=== PATIENT | female | born 1940 | race Caucasian/White ===

== ENCOUNTER 2016-03-14 20:32 | Emergency (ER) | payer MEDICARE, MEDICAID ==
[2016-03-14 20:32] VITALS: BMI 25.7
[2016-03-14 20:42] VITALS: TEMP 98.3
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
[2016-03-14] MEDS: HYDROmorphone 1 MG INJECTION IM ONE (21:06)
--- NOTE | 2016-03-14 22:09 | DIRPT ---
CLINICAL DATA: 75-year-old female with worsening back pain EXAM: CT THORACIC SPINE WITHOUT CONTRAST TECHNIQUE: Multidetector CT imaging of the thoracic spine was performed without intravenous contrast administration. Multiplanar CT image reconstructions were also generated. COMPARISON: Radiograph dated 02/19/[address] dated 09/22/2014 FINDINGS: There is a T12 compression fracture which is new compared the CT dated 09/22/2014 appears progressed since radiograph dated 02/19/2016, likely acute or subacute. There is approximately 50% loss of vertebral body height with anterior wedging. There is a 5 mm retropulsion of the superior posterior corner with moderate focal narrowing of the central canal. The bones are osteopenic. There is mild chronic appearing compression deformity of the inferior endplate of the T5 vertebra. No other acute fracture identified. There is mild perivertebral hematoma adjacent to the L2 vertebra. Mild centrilobular emphysema. Mild atherosclerotic disease of the visualized aorta. IMPRESSION: Compression fracture of the superior endplate of the T12 vertebra with interval progression compared the prior radiograph likely acute on chronic. Approximately 50% loss of vertebral body height with anterior wedging. Retropulsed fracture fragment from the posterior superior corner of the T12 with moderate focal narrowing of the central canal. MRI may provide better evaluation of the cord if clinically indicated. Electronically Signed By: Devan Hackett M.D. On: 03/14/2016 22:07
[2016-03-14] MEDS: OXYCODONE HCL 5 MG TABLET PO STA (23:00)
[2016-03-14 23:34] VITALS: BP 136/70; PULSE 78
== END 2016-03-14 23:33 | disposition home or self-care (01) ==
LOC: ED 20:32
DX: S22.000G Wedge compression fracture of unspecified thoracic vertebra, subsequent encounter for fracture with delayed healing (principal)
CPT/HCPCS: 72128; 96372; 99283; A9270; J1170; J3490

== ENCOUNTER 2016-03-20 11:05 | Inpatient (IN) | payer MEDICARE, MEDICAID ==
[~2016-03-20 11:05] MED LIST: DEXAMETHASONE 4 MG/ML VIAL IV ONE; GLYCOPYRROLATE 1 MG VIAL IM ONE; HYDROmorphone 2 MG/ML VIAL IM ONE; MIDAZOLAM 2 MG/2 ML VIAL IV ONE; NEOSTIGMINE 1 MG/1 ML (1:1000) INJ 10 ML MDV IM ONE; ONDANSETRON HCL 4 MG/2 ML VIAL IV ONE; PHENYLEPHRINE 10 MG/ML VIAL IC ONE; PROPOFOL 200 MG/20 ML VIAL IV ONE; SUCCINYLCHOLINE 20 MG/1 ML INJ 10 ML MDV IV ONE; VECURONIUM 10 MG VIAL IV ONE
[2016-03-20] MEDS ORDERED: REMIFENTANIL HCL 2,000 MCG VIAL IV ONE (13:04)
[2016-03-20] MEDS ORDERED: CEFAZOLIN 1 GM VIAL ONE ×2 (13:08→14:46)
--- NOTE | 2016-03-20 13:22 | HIM.ANES ---
Anesthesia Evaluation & Plan Diagnoses: WEDGE COMPRESSION FRACTURE OF T11-T12 VERTEBRA, INIT (03/20/16) STABLE BURST FRACTURE OF T11-T12 VERTEBRA, INIT FOR CLOS FX (03/20/16) Consented Procedure: POSTERIOR FUSION THORACIC 11 TO LUMBAR 1, THORACIC 12 DECOMPRESSION AND OTHER PROCEDURES INDICATED - Focused Review of Systems Cardiac History: Yes: Hx Hypertension, Hx Cardiac Disorders, Hx Abdominal Aortic Aneurysm (01/03/2016 4.5cm AAA, to be reevaluated in june), Hx Abnormal Cholesterol/Hyperlipidemia HEENT: Yes: Cataracts (small on left, right removed), Cataract Removal (RIGHT), Hx Vision Problem (glasses), Other HEENT Problems Hx Other HEENT Problems: chronic rhinnitis Respiratory: Yes: Hx Asthma (PER PFT'S 09/2014), Hx Emphysema, Hx Chronic Obstructive Pulmonary Disease (COPD), Hx Snoring Gastrointestinal: Yes: Hx Gastroesophageal Reflux Disease, Hx Gastrointestinal Disorders, Hx Colonoscopy, Hx Endoscopy, Hx Esophageal Dilatation Neurological/Musculoskeletal: No: Hx Neurological Disorders Psychological: Yes Hx Anxiety, No Hx Depression, Yes Hx Mental/Emotional Disorders Endocrine: Yes: Hx Hypothyroidism Blood/Autoimmune: No: Hx AIDS, Hx Hepatitis (type) Smoking Status: Former smoker Past Social History: Denies: Amphetamine Use, Substance Use Disorder Hx Echocardiogram (date): Yes (08/2014 EF 60-65%) Hx Chest Xray (date): Yes (01/2016 CLEAR) Surgical History: Yes: Appendectomy Other Surgical History: C/S X 2 - Focused Physical Exam NPO since: 03/19/16 2200 Mallampati: Class II Thyromental Distance: Greater than 3 Neck: Full Range of Motion Dental: Removable Dental Work Cardiovascular/Chest: Normal (RRR no mumurs or rubs.) Respiratory: Lungs clear. negative: Rhonchi, Wheezing Any problems with anesthesia, including nausea and vomiting?: No Any relatives with a history of Malignant Hyperthermia?: No Does patient have a history of Malignant Hyperthermia?: No Beta Ines given (if appropriate): N/A Does the patient have a history of Motion Sickness-: No Other: Problem List Problem Status Onset Abnormal CT scan, chest Acute Atypical pneumonia Acute Pneumonia Acute Thoracic compression fracture Acute Chronic cough Chronic COPD (chronic obstructive pulmonary disease) Suspected Allergies Allergy/AdvReac Type Severity Reaction Status Date / Time gemfibrozil Allergy Mild Rash-Genera Verified 03/17/16 16:18 lized latex Allergy Mild Rash-Genera Verified 03/17/16 16:18 lized penicillin Allergy Mild Rash-Genera Verified 03/17/16 16:18 lized Sulfa (Sulfonamide Allergy Mild Rash-Genera Verified 03/17/16 16:18 Antibiotics) lized tramadol Allergy Itching Verified 03/20/16 12:07 Home Medications Medication Instructions Recorded Last Taken Type Amitriptyline HCl [Elavil] 50 mg PO HS 09/22/14 03/19/16 History Folic Acid 1 mg PO DAILY 09/22/14 03/19/16 History Hydrochlorothiazide 25 mg PO DAILY 09/22/14 03/20/16 09:00 History Methotrexate Sodium [Methotrexate] 10 mg PO .SUNDAY AND Sunday09/22/14 History Olopatadine HCl [Patanol] 1 drop OU BID 09/22/14 03/14/16 History Potassium Chloride [Klor-Con M10] 10 meq PO DAILY 09/22/14 03/19/16 History Lactulose 15 - 30 ml PO DAILY PRN 02/24/16 03/19/16 History Prednisone [Deltasone, Orasone] 10 mg PO DAILY 02/24/16 03/19/16 History Meclizine HCl [Antivert] 25 mg PO TID PRN 03/14/16 03/14/16 History Solifenacin Succinate [Vesicare] 5 mg PO DAILY 03/14/16 03/18/16 History Acetaminophen Ex Str Tablet 500 mg PO QID PRN 03/17/16 03/19/16 History [TYLENOL EXTRA STRENGTH Tablet] Diphenhydramine HCl [Benadryl 25 mg PO DAILY PRN 03/17/16 3 Days Ago History Allergy] Fluticasone Propionate [Flonase] 2 spray MAVERICK DAILY PRN 03/17/16 Unknown History Hydrocodone/Acetaminophen 1 each PO TID PRN 03/17/16 Unknown History [Hydrocodon-Acetaminophen 5-325] Levothyroxine Sodium 2 tab PO DAILY 03/17/16 03/19/16 History Loratadine 10 mg PO DAILY PRN 03/17/16 Unknown History Ranitidine HCl 300 mg PO DAILY 03/17/16 Unknown History Diazepam [Valium] 5 mg PO BID 03/20/16 03/19/16 History PEG-Electrolytes (Miralax) 17 gm PO DAILY PRN 03/20/16 03/19/16 History [Miralax] Height and Weight Patient's height 5 ft 4 in Patient's weight 68.039 kg BMI 25.7 Vital Signs Temperature 97.2 F L 03/20/16 12:07 Pulse Rate 79 03/20/16 12:07 Respiratory Rate 18 03/20/16 12:07 Blood Pressure 123/63 03/20/16 12:07 Pulse Oxygen Saturation METS - Level of Activity: Eating, Dressing, walking around house, dishwashing - Anesthetic Plan Anesthesia Type: General ASA Class: 3 -: I have examined this patient and reviewed the medical record. The patient has been assessed prior to anesthesia. Risks and benefits of anesthesia and anesthetic technique options have been discussed and all questions answered. The patient accepts the risk and desires me to proceed with the planned anesthetic.
[2016-03-20] MEDS ORDERED: ONDANSETRON HCL 4 MG ODT TAB PO PRN (13:23)
[2016-03-20] MEDS ORDERED: MEPERIDINE 25 MG/ML TUBEX IV PRN (13:23)
[2016-03-20] MEDS ORDERED: LABETALOL 20 MG/4 ML SYRINGE IV PRN (13:23)
[2016-03-20] MEDS ORDERED: ONDANSETRON HCL 4 MG/2 ML VIAL IV PRN (13:23)
[2016-03-20] MEDS ORDERED: hydrALAZINE 20 MG/ML VIAL IV PRN (13:23)
[2016-03-20] MEDS ORDERED: FENTANYL 100 MCG/2 ML VIAL IV PRN ×2 (13:23)
[2016-03-20] MEDS ORDERED: TRIAMCINOLONE 40 MG/ML VIAL ONE (13:37)
[2016-03-20] MEDS ORDERED: HYDROmorphone 1 MG INJECTION IV ONE (13:52)
[2016-03-20] MEDS ORDERED: HYDROmorphone 1 MG INJECTION ONE (13:57)
[2016-03-20] MEDS: BUPIVACAINE 0.5% 30 ML VIAL ONE ×2 (14:14→15:57)
[2016-03-20] MEDS: LIDOCAINE 1% 30 ML VIAL (PRESERVATIVE FREE) ONE ×2 (14:15→15:57)
[2016-03-20] MEDS: VANCOMYCIN 1,000 MG VIAL INSTILL ONE ×3 (15:06→17:49)
[2016-03-20] MEDS ORDERED: MECLIZINE 25 MG TAB PO PRN (16:12)
[2016-03-20] MEDS ORDERED: Loratadine 10 MG TAB PO PRN (16:12)
[2016-03-20] MEDS ORDERED: [UNRECOGNIZED DRUG - REMARK] PO PRN (16:12)
[2016-03-20] MEDS ORDERED: MAGNESIUM HYDROXIDE 30 ML BOTTLE PO PRN (16:14)
[2016-03-20] MEDS ORDERED: HYDROmorphone 1 MG INJECTION IV PRN (16:14)
[2016-03-20] MEDS ORDERED: DIPHENHYDRAMINE 50 MG/ML VIAL IV PRN (16:14)
[2016-03-20] MEDS ORDERED: SODIUM CHLORIDE 0.9% 3 ML FLUSH FLUSH PRN (16:14)
[2016-03-20] MEDS ORDERED: OXYCODONE (OxyCONTIN) 10 MG TAB PO PRN (16:14)
[2016-03-20] MEDS ORDERED: DIPHENHYDRAMINE 25 MG CAP PO PRN (16:14)
[2016-03-20] MEDS ORDERED: Aluminum;Magnesium;Simethicone 30 ML UDC PO PRN (16:14)
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
[2016-03-20] MEDS: HYDROmorphone 1 MG INJECTION ONE ×2 (16:52→17:20)
[2016-03-20] MEDS ORDERED: Pharmacy Discontinue All Previous Acetaminophen Orders SCH (17:00)
[2016-03-20] MEDS ORDERED: NALOXONE 0.4 MG/ML AMPULE IV SCH (17:00)
[2016-03-20] MEDS: Cefazolin 2gm/50 ml D5W 2 GM/50 ML RTU IV SCH (17:43)
[2016-03-20] MEDS: SODIUM CHLORIDE 0.9% 3 ML FLUSH FLUSH SCH (17:51)
--- NOTE | 2016-03-20 17:54 | SC.ANESPOS ---
Post-Anesthesia Note LOC: Fully Awake Post-Anesthesia Assessment: Awake, Returned to Baseline, Hemodynamically Stable , Pain Control Adequate Phase I & II Recovery Complete: Yes Apparent Anesthesia Complication: No : N PACU Discharge Time: 17:25 - Vital Signs Blood Pressure: 147/82 Pulse: 89 Resp Rate: 20 O2 Sat: 92 Temp: 97.8 F - Comments Anesthesia Discharge Time Report Time 17:25
[2016-03-20] MEDS: CALCIUM CARBONATE + VITAMIN D 500 MG TAB PO SCH (18:18)
[2016-03-20] MEDS: ACETAMINOPHEN 325 MG/TAB TABLET PO SCH ×2 (18:18→21:33)
[2016-03-20] MEDS: ONDANSETRON HCL 4 MG/2 ML VIAL IV SCH (18:20)
[2016-03-20] MEDS ORDERED: Vaccine Screening Complete SCH (19:00)
[2016-03-20] MEDS: HYDROmorphone 1 MG INJECTION IV PRN (21:30)
[2016-03-20] MEDS: DIAZEPAM 5 MG TAB PO SCH (21:33)
[2016-03-20] MEDS: DOCUSATE-SENNA CONCENTRATE TAB PO SCH (21:34)
[2016-03-20] MEDS: AMITRIPTYLINE 50 MG TAB PO SCH (21:34)
[2016-03-20] MEDS: KETOTIFEN FUMARATE 100 DROPS/5 ML BOTTLE OU SCH (21:35)
[2016-03-21] MEDS: ONDANSETRON HCL 4 MG/2 ML VIAL IV SCH ×3 (00:54→12:10)
[2016-03-21] MEDS: Cefazolin 2gm/50 ml D5W 2 GM/50 ML RTU IV SCH ×2 (00:54→09:43)
[2016-03-21] MEDS: HYDROmorphone 1 MG INJECTION IV PRN ×3 (01:03→09:34)
[2016-03-21] MEDS: OXYCODONE HCL 5 MG TABLET PO PRN (03:20)
[2016-03-21] MEDS: SODIUM CHLORIDE 0.9% 3 ML FLUSH FLUSH SCH ×2 (05:46→17:26)
[2016-03-21] MEDS: ACETAMINOPHEN 325 MG/TAB TABLET PO SCH ×4 (06:11→23:11)
[2016-03-21 07:05] LABS: MPV 7.1 fL (7.4-10.4)
[2016-03-21 07:09] LABS: BLOOD UREA NITROGEN 13 MG/DL (7-17); CALCIUM 9.1 MG/DL (8.4-10.2); CALCULATED OSMOLALITY 261 MOs/Kg (270-290); CHLORIDE 95 mEq/L (98-107); GLUCOSE 108 MG/DL (70-99); SODIUM LEVEL 135 mEq/L (137-146)
[2016-03-21] MEDS ORDERED: OXYCODONE HCL 5 MG TABLET PO PRN (07:18)
--- NOTE | 2016-03-21 07:21 | PCM.ORTHBL ---
- Subjective Post Op Day: 1 Daily Assessment - Patient: Reports: No new complaints, Awake Alert Oriented x4 , Still having pain (pain medication helps some), Tolerating Regular Diet, Voiding without difficulty, Afebrile, Nausea, Other (Denies chest pain. No radicular pain. No numbness/tingling. No loss of bowel/bladder function.). Denies: Ambulating with Physical Therapist (to begin today), Difficulty Swallowing, Shortness of breath, Vomiting - Objective / Physical Exam Vital Signs: Temperature: 99.0 F (03/21/16 06:00) HR: 92 (03/21/16 06:00)RR: 18 (03/21/16 06: 00) BP: 113/58 (03/21/16 06:00)Pulse Ox: 93 (03/21/16 06:00) General: Alert, Oriented x3, Cooperative, No acute distress, Well appearing Musculoskeletal / Extremities: 2 plus Dorsalis Pedis Pulse, Dressing Clean/Dry/ Intact. negative: Tenderness (no calf tenderness) Neurological: Positive Sensation First Dorsal Web Space, Sensation to light touch intact, Extensor Hallicus Longus Intact, Flexor Hallicus Longus Intact, Dorsiflexion Intact, Plantarflexion Intact Laboratory/Diagnostics Reviewed: 03/21/16 06:28 03/21/16 06:28 - Assessment and Plan (1) S/P spinal fusion Acute Present on Admission: Yes Plan: POD#1 s/p T11-L1 fusion Continue pain management, pain medication adjusted today TEDS/SCDS PT/WBAT D/C planning
[2016-03-21] MEDS: OXYCODONE (OxyCONTIN) 10 MG TAB PO SCH ×2 (08:25→23:13)
[2016-03-21] MEDS: PREDNISONE 10 MG TAB PO SCH (09:35)
[2016-03-21] MEDS: TOLTERODINE 4 MG LA CAP PO SCH (09:35)
[2016-03-21] MEDS: LEVOTHYROXINE 137 MCG TABLET PO SCH (09:36)
[2016-03-21] MEDS: HYDROCHLOROTHIAZIDE 25 MG TAB PO SCH (09:36)
[2016-03-21] MEDS: DIAZEPAM 5 MG TAB PO SCH ×2 (09:36→23:13)
[2016-03-21] MEDS: KETOTIFEN FUMARATE 100 DROPS/5 ML BOTTLE OU SCH ×2 (09:37→23:11)
[2016-03-21] MEDS: RANITIDINE 150 MG TAB PO SCH (09:37)
[2016-03-21] MEDS: POTASSIUM CHLORIDE 10 MEQ TABLET PO SCH (12:09)
[2016-03-21] MEDS: FOLIC ACID 1 MG TAB PO SCH (12:09)
[2016-03-21] MEDS: VITAMINS, MULTIPLE CAP PO SCH (12:09)
[2016-03-21] MEDS: CALCIUM CARBONATE + VITAMIN D 500 MG TAB PO SCH ×2 (12:09→17:26)
[2016-03-21] MEDS: MORPHINE 2 MG/ML INJECTION IV PRN (12:12)
[2016-03-21] MEDS ORDERED: ONDANSETRON HCL 4 MG/2 ML VIAL IV PRN (18:00)
[2016-03-21] MEDS: DOCUSATE-SENNA CONCENTRATE TAB PO SCH (23:11)
[2016-03-21] MEDS: AMITRIPTYLINE 50 MG TAB PO SCH (23:11)
[2016-03-22] MEDS: MORPHINE 2 MG/ML INJECTION IV PRN ×2 (02:13→04:14)
[2016-03-22] MEDS: SODIUM CHLORIDE 0.9% 3 ML FLUSH FLUSH SCH ×2 (05:20→17:08)
[2016-03-22] MEDS: ACETAMINOPHEN 325 MG/TAB TABLET PO SCH ×3 (05:21→21:44)
--- NOTE | 2016-03-22 06:30 | PCM.ORTHBL ---
- Subjective Post Op Day: 2 Daily Assessment - Patient: Reports: No new complaints, Still having pain, Tolerating Regular Diet, Afebrile, Ambulating with Physical Therapist ( progressing slowly), No Bowel Movement, Other (denies chest pain. Denies numbness/tingling). Denies: Shortness of breath (Patient did report SOB earlier today, but none currently), Nausea, Vomiting - Objective / Physical Exam Vital Signs: Temperature: 98.8 F (03/22/16 05:56) HR: 80 (03/22/16 05:56)RR: 18 (03/22/16 05: 56) BP: 130/60 (03/22/16 05:56)Pulse Ox: 97 (03/22/16 05:56) General: Alert, Oriented x3, Cooperative, No acute distress, Well appearing Musculoskeletal / Extremities: 2 plus Dorsalis Pedis Pulse, Dressing Clean/Dry/ Intact. negative: Tenderness (no calf tenderness) Neurological: Positive Sensation First Dorsal Web Space, Sensation to light touch intact, Extensor Hallicus Longus Intact, Flexor Hallicus Longus Intact, Dorsiflexion Intact, Plantarflexion Intact - Assessment and Plan (1) S/P spinal fusion Acute Present on Admission: Yes Plan: POD#2 s/p T11-L1 fusion for T12 compression fracture PT/WBAT; Avoid flexion/rotation of the spine. Continue pain management TEDS/SCDS D/C planning. Patient will need SNF/rehab at discharge
[2016-03-22 07:23] LABS: MPV 7.2 fL (7.4-10.4)
[2016-03-22 07:32] LABS: BLOOD UREA NITROGEN 17 MG/DL (7-17); CALCIUM 9.2 MG/DL (8.4-10.2); CALCULATED OSMOLALITY 260 MOs/Kg (270-290); CHLORIDE 93 mEq/L (98-107); GLUCOSE 91 MG/DL (70-99); SODIUM LEVEL 134 mEq/L (137-146)
[2016-03-22] MEDS: HYDROCHLOROTHIAZIDE 25 MG TAB PO SCH (08:09)
[2016-03-22] MEDS: TOLTERODINE 4 MG LA CAP PO SCH (08:09)
[2016-03-22] MEDS: OXYCODONE (OxyCONTIN) 10 MG TAB PO SCH ×2 (08:09→21:44)
[2016-03-22] MEDS: PREDNISONE 10 MG TAB PO SCH (08:09)
[2016-03-22] MEDS: DIAZEPAM 5 MG TAB PO SCH ×2 (08:10→21:44)
[2016-03-22] MEDS: LEVOTHYROXINE 137 MCG TABLET PO SCH (08:10)
[2016-03-22] MEDS: RANITIDINE 150 MG TAB PO SCH (08:10)
[2016-03-22] MEDS: KETOTIFEN FUMARATE 100 DROPS/5 ML BOTTLE OU SCH ×2 (08:11→21:45)
[2016-03-22] MEDS ORDERED: Pharmacy Discontinue All Previous Acetaminophen Orders SCH (11:00)
[2016-03-22] MEDS: FOLIC ACID 1 MG TAB PO SCH (11:30)
[2016-03-22] MEDS: VITAMINS, MULTIPLE CAP PO SCH (11:30)
[2016-03-22] MEDS: CALCIUM CARBONATE + VITAMIN D 500 MG TAB PO SCH ×2 (11:30→17:08)
[2016-03-22] MEDS: POTASSIUM CHLORIDE 10 MEQ TABLET PO SCH (11:30)
[2016-03-22] MEDS ORDERED: Acetaminophen, Intravenous 1,000 MG/100 ML IVBOT IV ONE (12:00)
[2016-03-22] MEDS: OXYCODONE HCL 5 MG TABLET PO PRN (17:20)
[2016-03-22] MEDS ORDERED: Acetaminophen, Intravenous 1,000 MG/100 ML IVBOT IV SCH (18:00)
[2016-03-22] MEDS: DOCUSATE-SENNA CONCENTRATE TAB PO SCH (21:44)
[2016-03-22] MEDS: AMITRIPTYLINE 50 MG TAB PO SCH (21:45)
[2016-03-23] MEDS: MORPHINE 2 MG/ML INJECTION IV PRN (03:58)
[2016-03-23] MEDS: SODIUM CHLORIDE 0.9% 3 ML FLUSH FLUSH SCH (05:09)
[2016-03-23] MEDS: ACETAMINOPHEN 325 MG/TAB TABLET PO SCH ×2 (05:09→14:16)
--- NOTE | 2016-03-23 07:33 | PCM.ORTHBL ---
- Subjective Post Op Day: 3 Daily Assessment - Patient: Reports: No new complaints, Awake Alert Oriented x4 , Feels better, Pain is less, Tolerating Regular Diet, Voiding without difficulty, Afebrile, Ambulating with Physical Therapist (improved), Other ( denies chest pain). Denies: Shortness of breath, Nausea, Vomiting - Objective / Physical Exam Vital Signs: Temperature: 97.2 F (03/23/16 05:48) HR: 69 (03/23/16 05:48)RR: 18 (03/23/16 05: 48) BP: 102/48 (03/23/16 05:48)Pulse Ox: 98 (03/23/16 05:48) General: Alert (awoken upon entering room), Oriented x3, Cooperative, No acute distress, Well appearing Musculoskeletal / Extremities: 2 plus Dorsalis Pedis Pulse, Dressing Clean/Dry/ Intact. negative: Tenderness (no significant calf tenderness) Neurological: Positive Sensation First Dorsal Web Space, Sensation to light touch intact, Extensor Hallicus Longus Intact, Flexor Hallicus Longus Intact, Dorsiflexion Intact, Plantarflexion Intact Spine: limited range of motion - Assessment and Plan (1) S/P spinal fusion Acute Present on Admission: Yes Plan: POD#3 s/p T11-L1 fusion PT/WBAT; Avoid flexion/rotation of the spine. No lifting greater than 5 pounds. Continue pain management D/C plan for [facility] today
--- NOTE | 2016-03-23 07:36 | PCM.DCS92 ---
- Final/Secondary Discharge Diagnosis (1) S/P spinal fusion Acute Present on Admission: Yes Plan/Goal/Comment: Pain improved. Continue pain management. Continue PT. Avoid flexion/rotation of the spine. No lifting greater than 5 pounds. Keep dressing clean and dry. Do not remove dressing. OK to shower with Ioban in place. Call office with any dressing concerns. No NSAIDs for 3 months post-op. No blood thinners for 72 hours post-op. Stable for discharge to [facility]. To follow-up in office in 2 weeks or earlier as needed. Discharge Disposition: Halfway Facility Discharge Condition: Stable Cognitive Discharge Status: Unimpaired Fuctional Discharge Status: Walker Assistance, Post-op Weakness Home Medications/ New Prescriptions: New Oxycodone Immediate Release [Oxycodone Immediate Release (OxyIR)] 5 mg PO Q4H PRN #40 tab PRN Reason: Pain Senna Concentrate [Senokot] 2 tab PO QHS #60 tablet No Action Amitriptyline HCl [Elavil] 50 mg PO HS Hydrochlorothiazide 25 mg PO DAILY Potassium Chloride [Klor-Con M10] 10 meq PO DAILY Methotrexate Sodium [Methotrexate] 10 mg PO SUMO Folic Acid 1 mg PO DAILY Lactulose 15 - 30 ml PO DAILY PRN PRN Reason: Constipation Prednisone [Deltasone, Orasone] 5 mg PO DAILY Solifenacin Succinate [Vesicare] 5 mg PO DAILY Meclizine HCl [Antivert] 25 mg PO TID PRN PRN Reason: Dizziness Loratadine 10 mg PO DAILY PRN PRN Reason: Allergy Symptoms Acetaminophen Ex Str Tablet [TYLENOL EXTRA STRENGTH Tablet] 500 mg PO QID PRN PRN Reason: Pain Diphenhydramine HCl [Benadryl Allergy] 25 mg PO DAILY PRN PRN Reason: Allergy Symptoms PEG-Electrolytes (Miralax) [Miralax] 17 gm PO DAILY PRN PRN Reason: Constipation Diazepam [Valium] 5 mg PO BID PRN PRN Reason: PRIOR TO MRI Levothyroxine [Synthroid, Levoxyl] 300 mcg PO DAILY Diet at Discharge: As Tolerated, Regular Activity: Limited (Avoid flexion/rotation of the spine. No lifting greater than 5 pounds.), No Heavy Lifting, No Driving Call Office For: Worsening Symptoms, Wound is Draining Pus, Fever over 101 F, Fever over 100.5, Wound is Painful, Wound is Red, Weight Gain (see below), Pain Uncontrolled By Meds, Other (See Details) Discontinue use of:: Alcohol, All Illegal Substances, All Types of Tobacco - DC Summary Notes Hospital Course Note:: Discharge summary on patient named EUGENIO VALE admitted to [facility] on 03/20/16 by Silvano Buitrago MD. Date of discharge is [03/23/16]. Afebrile. Hospital course and surgery uneventful. Pain improved. Continue pain management. Continue PT. Avoid flexion/rotation of the spine. No lifting greater than 5 pounds. Keep dressing clean and dry. Do not remove dressing. OK to shower with Ioban in place. Call office with any dressing concerns. No NSAIDs for 3 months post-op. No blood thinners for 72 hours post- op. Stable for discharge to [facility]. To follow-up in office in 2 weeks or earlier as needed. Wound Care Surgical Site: Yes Site Description (if applicable): lower back Dressing/Site Care (if applicable): eep dressing clean and dry. Do not remove dressing. OK to shower with Ioban in place. Call office with any dressing concerns. Medical Equipment (Order must still be written on paper): Walker Remove Transdermal Scopalamine patch if present: YES Medication Instructions: Take Stool Softener, Rx on Chart Continue Ice Packs/Ice Machine to Operative Area: Yes Activity as Tolerated: Yes Weight Bearing: As Tolerated Current Dressing: Ioban Dressing Care: Keep Wound Clean & Dry, Shower with Tegaderm Dsg (ioban), No Tub Baths, Do Not Change Dressing (Keep dressing clean and dry. Do not remove dressing. OK to shower with Ioban in place. Call office with any dressing concerns.) - Consults/Home Health Outpatient Consults: None - Physical Exam Vital Signs: Initial Vitals Temperature 97.2 F L 03/20/16 12:07 Pulse Rate 79 03/20/16 12:07 Respiratory Rate 18 03/20/16 12:07 Blood Pressure 123/63 03/20/16 12:07 Last Vital Signs Temp 97.2 F L 03/23/16 05:48 Pulse 69 03/23/16 05:48 Resp 03/23/16 05:48 BP 102/48 L 01/26/17 05:48 Pulse Ox 98 03/23/16 05:48 Constitutional: No apparent distress, Alert, Well appearing Oriented to: Time, Person, Place - HEENT Head: Normal - Musculoskeletal Extremities: Pedal Pulse, Other (SITLT) Spine: limited range of motion, other (dressing clean, dry, intact) - Neurologic Memory Impaired: Normal Motor Function: Normal Cranial Nerve: Normal Cerebellar: Normal Mood Description: Normal Thought: Coherent Perception: Normal
[2016-03-23] MEDS ORDERED: BISACODYL 10 MG SUPP PR ONE (08:19)
[2016-03-23] MEDS: PREDNISONE 10 MG TAB PO SCH (09:34)
[2016-03-23] MEDS: TOLTERODINE 4 MG LA CAP PO SCH (09:34)
[2016-03-23] MEDS: DIAZEPAM 5 MG TAB PO SCH (09:35)
[2016-03-23] MEDS: HYDROCHLOROTHIAZIDE 25 MG TAB PO SCH (09:35)
[2016-03-23] MEDS: KETOTIFEN FUMARATE 100 DROPS/5 ML BOTTLE OU SCH (09:35)
[2016-03-23] MEDS: OXYCODONE (OxyCONTIN) 10 MG TAB PO SCH (09:35)
[2016-03-23] MEDS: LEVOTHYROXINE 137 MCG TABLET PO SCH (09:35)
[2016-03-23] MEDS: RANITIDINE 150 MG TAB PO SCH (09:36)
[2016-03-23] MEDS: POTASSIUM CHLORIDE 10 MEQ TABLET PO SCH (11:27)
[2016-03-23] MEDS: FOLIC ACID 1 MG TAB PO SCH (11:27)
[2016-03-23] MEDS: VITAMINS, MULTIPLE CAP PO SCH (11:27)
[2016-03-23] MEDS: CALCIUM CARBONATE + VITAMIN D 500 MG TAB PO SCH (11:27)
[2016-03-23 14:30] VITALS: BP 104/62; PULSE 104; TEMP 97.7
[2016-03-23] MEDS ORDERED: ACETAMINOPHEN 325 MG/TAB TABLET PO SCH (22:00)
[2016-03-26] MEDS ORDERED: METHOTREXATE SODIUM 2.5 MG TAB PO SCH (09:00)
== END 2016-03-23 16:50 | DRG 460 ==
LOC: SDC 11:05 → MPS3 16:42
PROVIDERS: ADMIT Orthopaedic Surgery; ATTEND Orthopaedic Surgery
PROC: 0RGA0Z1 (ICD-10-PCS; 2016-03-20)
PROC: 00NX0ZZ Release Thoracic Spinal Cord, Open Approach (ICD-10-PCS; 2016-03-20)
PROC: 0RG60Z1 (ICD-10-PCS; principal; 2016-03-20 13:00)
DX: S22.081A Stable burst fracture of T11-T12 vertebra, initial encounter for closed fracture (principal); H90.3 Sensorineural hearing loss, bilateral; M06.9 Rheumatoid arthritis, unspecified; J44.9 Chronic obstructive pulmonary disease, unspecified; Y93.9 Activity, unspecified; Z79.899 Other long term (current) drug therapy; Z88.0 Allergy status to penicillin; Z88.8 Allergy status to other drugs, medicaments and biological substances; Z88.2 Allergy status to sulfonamides; Z91.040 Latex allergy status; Z85.828 Personal history of other malignant neoplasm of skin; H93.19 Tinnitus, unspecified ear; I10 Essential (primary) hypertension; K21.9 Gastro-esophageal reflux disease without esophagitis; E03.9 Hypothyroidism, unspecified; F32.9 Major depressive disorder, single episode, unspecified; Z87.891 Personal history of nicotine dependence; J45.909 Unspecified asthma, uncomplicated; S22.080A Wedge compression fracture of T11-T12 vertebra, initial encounter for closed fracture; V49.9XXD Car occupant (driver) (passenger) injured in unspecified traffic accident, subsequent encounter
CPT/HCPCS: 51701; 51798; 80048; 85027; 95861; 95937; 95938; 95939; 97162; 97165; G0237; J0131; J0330; J0690; J1100; J1170; J2001; J2250; J2270; J2370; J2405; J2710; J3301; J3370; J3490